=== PATIENT | female | born 1995 | race Hispanic/Latino ===

== ENCOUNTER 2023-08-23 05:14 | Inpatient (IN) | payer MEDICAID, SELFPAY ==
[2023-08-23 05:31] VITALS: BMI 29.9
[2023-08-23] MEDS ORDERED: Lactated Ringer's 1,000 ML IV SCH (05:45)
[2023-08-23] MEDS ORDERED: Ondansetron PF 4 MG/2 ML Vial IVP PRN (06:48)
[2023-08-23] MEDS ORDERED: Lidocaine 1% (PF) 30 ML VIAL SC PRN (06:48)
[2023-08-23] MEDS ORDERED: hydrALAZINE 20 MG/ML VIAL SLOW IVP PRN ×2 (06:48→12:36)
[2023-08-23] MEDS ORDERED: Promethazine HCl 25 MG/ML VIAL IM PRN (06:48)
[2023-08-23] MEDS ORDERED: fentaNYL 50 mcg/mL 1 mL Vial SLOW IVP PRN (06:49)
[2023-08-23] MEDS ORDERED: Penicillin G Potassium 5 MILL.UNITS in Sodium Chloride 0.9% 100 ML IVPB SCH (07:00)
[2023-08-23] MEDS ORDERED: Oxytocin 30 units/NS 500 ML 500 ML IV SCH (07:00)
[2023-08-23] MEDS ORDERED: NIFEdipine XL 30 MG ER.TAB PO SCH (07:15)
[2023-08-23] MEDS: Betamet Acet/Betamet Na Ph 30 MG/5 ML VIAL IM SCH (07:24)
[2023-08-23 07:33] LABS: ALT (SGPT) 22 U/L (8-55); AST (SGOT) 16 U/L (5-34); Albumin 3.3 g/dL (3.5-5.0); Alkaline Phosphatase 158 U/L (40-110); Anion Gap 15 mmol/L (10-20); BUN (Urea Nitrogen) 6 mg/dL (7.0-18.7); Bilirubin, Total 0.4 mg/dL (0.2-1.2); Calc. Creatinine Clearance 140 mL/min (70-130); Calcium 8.6 mg/dL (7.8-10.44); Carbon Dioxide 19 mmol/L (22-29); Chloride 106 mmol/L (98-107); Estimated GFR 123; Glucose 96 mg/dL (70-105); Potassium 3.6 mmol/L (3.5-5.1); Protein, Total 6.3 g/dL (6.0-8.3); Sodium 136 mmol/L (136-145)
[2023-08-23 07:52] LABS: Syphilis Antibody Nonreactive (Nonreactive); Syphilis Antibody Index 0.03 S/CO (<1.00 Non-Reactive)
[2023-08-23 07:54] LABS: HBSAg Index 0.19 S/CO (0-0.99); HIV (1/2) Antibody/Antigen Non-Reactive (NonReactive); HIV 1/2 INDEX 0.09 S/CO (<1.00); Hep B Surf Ag - L&D Non-Reactive S/CO (NonReactive)
[2023-08-23 08:13] LABS: Amphetamine Not Detected (NotDetected); Barbiturates Screen Not Detected (NotDetected); Benzodiazepine Screen Not Detected (NotDetected); Cocaine Metabolite Screen Not Detected (NotDetected); Methadone Not Detected (NotDetected); Methamphetamine Not Detected (NotDetected); Opiate Screen Not Detected (NotDetected); Oxycodone Screen Not Detected (NotDetected); Phencyclidine (PCP) Not Detected (NotDetected); THC/Cannabinoid Screen Not Detected (NotDetected); Tricyclic Screen Not Detected (NotDetected)
[2023-08-23] MEDS ORDERED: Lorazepam 2 MG/ML VIAL SLOW IVP PRN (08:48)
[2023-08-23] MEDS ORDERED: Calcium Gluc 4.6 MEQ/10 ML (100 MG/ML) SLOW IVP PRN (08:48)
[2023-08-23] MEDS ORDERED: Magnesium Sulfate 20 gm/500 ml 20 GM/500 ML BAG ONE (08:52)
[2023-08-23] MEDS ORDERED: Misoprostol 200 MCG TAB PR PRN (08:55)
[2023-08-23] MEDS ORDERED: Methylergonovine 0.2 MG/ML VIAL IM PRN (08:55)
[2023-08-23] MEDS ORDERED: Tranexamic Acid 1,000 MG/10 ML VIAL IVP PRN (08:55)
[2023-08-23] MEDS ORDERED: Carboprost 250 MCG/ML AMP IM PRN (08:55)
[2023-08-23] MEDS ORDERED: Magnesium Sulfate 20 gm/500 ml 20 GM/500 ML BAG IVPB SCH (09:00)
[2023-08-23 09:15] LABS: Hemoglobin 11.8 g/dL (12.0-15.5); Mean Corpuscular HGB CONC 34.7 g/dL (32.0-36.0); Mean Corpuscular Hemoglobin 31.5 pg (27.0-33.0); Mean Corpuscular Volume 90.7 fl (81.6-98.3); Mean Platelet Volume 10.7 fl (7.4-10.4); Platelet Count 337 10x3/uL (150-450); RBC Distribution Width 12.8 % (11.5-14.5); Red Blood Cell (RBC) Count 3.75 10x6/uL (3.90-5.03); White Blood Cell (WBC) Count 14.9 10x3/uL (3.5-10.5)
[2023-08-23] MEDS ORDERED: fentaNYL/Ropivacaine Epidural 0 ML ONE (09:22)
[2023-08-23] MEDS: Penicillin G 2.5 MILL.units 2.5 MILL.UNITS in Premix 1 BAG IVPB SCH ×2 (11:12→20:21)
[2023-08-23] MEDS ORDERED: Benzocaine-Menthol 82.5 ML CAN TOP PRN (12:36)
[2023-08-23] MEDS ORDERED: Lanolin Ointment 7 GM TUBE TOP PRN (12:36)
[2023-08-23] MEDS ORDERED: Boostrix 0.5 ML (Tdap) VIAL (>/=7 yrs of age) IM ONE (12:36)
[2023-08-23] MEDS ORDERED: Preparation H Ointment 28 GM TUBE PR PRN (12:36)
[2023-08-23] MEDS ORDERED: Milk Of Magnesia 30 ML UDCUP PO PRN (12:36)
[2023-08-23] MEDS ORDERED: Bisacodyl 10 MG SUPP PR PRN (12:36)
[2023-08-23] MEDS ORDERED: NIFEdipine 10 MG CAP PO SCH (13:00)
[2023-08-23 13:02] LABS: Analyzer IN Cardio CS NICU; RapidComm Collect By CBN; pH (Cord, venous) 7.406 (7.250-7.350)
[2023-08-23 13:04] LABS: Analyzer IN Cardio CS NICU; RapidComm Collect By CBN
[2023-08-23] MEDS: Ibuprofen 800 MG TAB PO SCH ×2 (14:09→22:29)
[2023-08-23] MEDS: Ferrous Sulfate 325 MG TAB PO SCH (17:18)
[2023-08-23] MEDS: Acetaminophen 500 MG TAB PO PRN (17:25)
[2023-08-23] MEDS: Lactated Ringer's 1,000 ML IV SCH ×2 (20:19→20:20)
[2023-08-23] MEDS: Docusate 100 MG CAP PO SCH (22:29)
[2023-08-24] MEDS: Ibuprofen 800 MG TAB PO SCH ×4 (05:34→22:56)
[2023-08-24] MEDS: Lactated Ringer's 1,000 ML IV SCH ×2 (06:18→14:02)
[2023-08-24] MEDS: Betamet Acet/Betamet Na Ph 30 MG/5 ML VIAL IM SCH (07:16)
[2023-08-24] MEDS: Docusate 100 MG CAP PO SCH ×2 (08:11→22:56)
[2023-08-24] MEDS: Acetaminophen 500 MG TAB PO PRN ×2 (08:11→16:12)
[2023-08-24] MEDS: Ferrous Sulfate 325 MG TAB PO SCH ×2 (08:12→16:32)
[2023-08-24] MEDS ORDERED: Meclizine HCl 25 MG TAB PO PRN (17:28)
[2023-08-25] MEDS: Ibuprofen 800 MG TAB PO SCH ×2 (05:39→14:41)
[2023-08-25] MEDS: Lactated Ringer's 1,000 ML IV SCH (05:41)
[2023-08-25 07:57] VITALS: BP 100/55; TEMP 97.7
[2023-08-25] MEDS: Docusate 100 MG CAP PO SCH (08:13)
[2023-08-25] MEDS: Ferrous Sulfate 325 MG TAB PO SCH (08:13)
== END 2023-08-25 16:16 | disposition home or self-care (01) | DRG 807 ==
LOC: CSHLD/OP 05:14 → CSHLD 07:21 → CSHPP 15:15
PROVIDERS: ADMIT Obstetrics & Gynecology; ATTEND Obstetrics & Gynecology
PROC: 10E0XZZ Delivery of Products of Conception, External Approach (ICD-10-PCS; principal; 2023-08-23)
PROC: 10907ZC Drainage of Amniotic Fluid, Therapeutic from Products of Conception, Via Natural or Artificial Opening (ICD-10-PCS; 2023-08-23)
DX: O67.9 Intrapartum hemorrhage, unspecified (principal); Z37.0 Single live birth; Z3A.31 31 weeks gestation of pregnancy
CPT/HCPCS: 36415; 51702; 76805; 80053; 80306; 82805; 85027; 86762; 86780; 86850; 86900; 86901; 87340; 87389; 88307; 99285; J0702; J2405; J2540; J3475; J3490